=== PATIENT | male | born 1990 | race Two or more races ===

== ENCOUNTER 2016-12-19 11:42 | Emergency (ER) | payer MEDICARE ==
[~2016-12-19] VITALS: Ht 175.3 cm; Wt 63.5 kg
[2016-12-19 11:55] VITALS: BP 124/89
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
--- NOTE | 2016-12-19 12:12 | NUR ---
DR CUMMINGS AT BEDSIDE FOR EVAL.
[2016-12-19] MEDS ORDERED: FLUORESCEIN SODIUM OPHTH 1 EA STRIP ONE ×2 (12:23→13:02)
[2016-12-19] MEDS ORDERED: TETRACAINE HCL/PF 0.5% UD 2 ML BOTTLE ONE ×2 (12:23→13:02)
--- NOTE | 2016-12-19 12:30 | NUR ---
PT TO RADIOLOGY FOR HEAD AND FACIAL CT SCAN VIA WHEELCHAIR.
[2016-12-19] MEDS ORDERED: IBUPROFEN 400 MG TABLET PO ONE (13:30)
[2016-12-19] MEDS ORDERED: IBUPROFEN 400 MG TABLET ONE (13:32)
--- NOTE | 2016-12-19 13:41 | NUR ---
Patient discharged to home in stable condition. Written and verbal after care instructions given. Patient verbalizes understanding of instruction.
== END 2016-12-19 13:41 | disposition home or self-care (01) ==
LOC: ER 11:57
DX: S05.92XA Unspecified injury of left eye and orbit, initial encounter (principal); S30.0XXA Contusion of lower back and pelvis, initial encounter; H11.32 Conjunctival hemorrhage, left eye; J45.909 Unspecified asthma, uncomplicated; G47.30 Sleep apnea, unspecified; Y04.0XXA Assault by unarmed brawl or fight, initial encounter; Y93.89 Activity, other specified; Y92.89 Other specified places as the place of occurrence of the external cause; Y99.8 Other external cause status
CPT/HCPCS: 70450; 70486; 99284; A4606; Z7610

== ENCOUNTER 2017-09-29 21:42 | Emergency (ER) | payer MEDICARE, OTHER ==
[~2017-09-29] VITALS: Ht 175.3 cm; Wt 65.8 kg
[2017-09-29 22:45] VITALS: BP 115/72
[2017-09-29] MEDS ORDERED: ONDANSETRON 4 MG TAB.RAPDIS SL ONE (23:30)
[2017-09-29] MEDS ORDERED: ONDANSETRON 4 MG TAB.RAPDIS ONE (23:31)
--- NOTE | 2017-09-29 23:55 | NUR ---
PATIENT HAS LEFT WITHOUT A PRESCRIPTION. WILL TAKE PATIENT OUT OF SYSTEM
== END 2017-09-29 23:58 | disposition home or self-care (01) ==
LOC: ER 21:43
DX: R53.82 Chronic fatigue, unspecified (principal); R11.0 Nausea; J45.909 Unspecified asthma, uncomplicated; G47.30 Sleep apnea, unspecified; E55.9 Vitamin D deficiency, unspecified; K75.9 Inflammatory liver disease, unspecified; Z60.2 Problems related to living alone; Z98.890 Other specified postprocedural states
CPT/HCPCS: 99283; A4606; Q0162; Z7610